=== PATIENT | male | born 1960 | race African-American/Black ===

== ENCOUNTER 2022-06-29 10:41 | Inpatient (IN) | payer MEDICAID, OTHER ==
[~2022-06-29] VITALS: Ht 193 cm; Wt 142.9 kg
[~2022-06-29 10:41] MED LIST: ASPI-1406 PO; CARV6.2548 PO; FURO-151 MT; LISI-186 PO; SPIR25TA PO
[2022-06-29] MEDS ORDERED: NITROGLYCERIN 0.4MG TABLET SL SL PRN (12:30)
[2022-06-29 12:45] LABS: BASOPHILS % 0.7 % (0.0-2.0); EOSINOPHILS % 1.3 % (0.0-5.0); HEMATOCRIT. 46.2 % (42.0-52.0); HEMOGLOBIN. 15.6 g/dL (14.0-18.0); LYMPHOCYTES % 25.8 % (20.0-50.0); MEAN CORPUSCULAR HEMOGLOBIN 30.5 pg (28.0-32.0); MEAN CORPUSCULAR VOLUME 90.7 fL (80.0-94.0); MEAN PLATELET VOLUME 9.3 fl (7.4-10.4); MONOCYTES % 9.2 % (2.0-8.0); PLATELET 249 x1000/uL (130-400); RED CELL DISTRIBUTION WIDTH 15.8 % (11.6-14.6)
[2022-06-29 13:05] LABS: CHLORIDE 109 mEq/L (98-107)
[2022-06-29] MEDS ORDERED: FUROSEMIDE 40MG/4ML VIAL IVP ONE (13:15)
[2022-06-29] MEDS ORDERED: FUROSEMIDE 40MG/4ML VIAL IVP NR (15:18)
[2022-06-29 22:00] VITALS: BP 137/97
[2022-06-29] MEDS ORDERED: ZOLPIDEM TARTRATE 5MG TABLET PO PRN (23:45)
[2022-06-29] MEDS ORDERED: HYDROCODONE/ACETAMINOPHEN 5/325MG TABLET PO PRN (23:45)
[2022-06-29] MEDS ORDERED: DEXTROSE 50% WATER 50ML SYRINGE IV PRN (23:45)
[2022-06-29] MEDS ORDERED: CLONIDINE 0.1MG TABLET PO PRN (23:45)
[2022-06-30] VITALS: BP 105/60
[2022-06-30 04:00] VITALS: BP 143/93
[2022-06-30 05:52] LABS: *AMPHETAMINES SCREEN URINE NEGATIVE (NEGATIVE); *BARBITURATES SCREEN URINE NEGATIVE (NEGATIVE); *BENZODIAZEPINES SCREEN URINE NEGATIVE (NEGATIVE); *COCAINE SCREEN URINE NEGATIVE (NEGATIVE); CANNABINOID URINE SCREEN NEGATIVE (NEGATIVE); METHADONE URINE SCREEN NEGATIVE (NEGATIVE); OPIATES URINE SCREEN NEGATIVE (NEGATIVE); PHENCYCLIDINE URINE SCREEN NEGATIVE (NEGATIVE)
[2022-06-30 06:22] LABS: BASOPHILS % 0.8 % (0.0-2.0); EOSINOPHILS % 1.4 % (0.0-5.0); HEMOGLOBIN. 15.3 g/dL (14.0-18.0); LYMPHOCYTES % 26.1 % (20.0-50.0); MEAN CORPUSCULAR HEMOGLOBIN 30.7 pg (28.0-32.0); MEAN CORPUSCULAR VOLUME 90.1 fL (80.0-94.0); MEAN PLATELET VOLUME 9.8 fl (7.4-10.4); MONOCYTES % 9.1 % (2.0-8.0); NEUTROPHILS % 62.6 % (40.0-76.0); PLATELET 245 x1000/uL (130-400); RED BLOOD CELL COUNT 4.99 mill/uL (4.7-6.1); RED CELL DISTRIBUTION WIDTH 15.7 % (11.6-14.6)
[2022-06-30] MEDS: BLOOD SUGAR DIAGNOSTIC STRIP TEST SCH ×4 (06:55→21:33)
[2022-06-30] MEDS: INSULIN LISPRO 100 UNITS/ML SUBCUT SCH ×4 (07:20→21:32)
[2022-06-30 07:52] LABS: CHLORIDE 106 mEq/L (98-107)
[2022-06-30 08:00] VITALS: BP 113/60
[2022-06-30] MEDS: FUROSEMIDE 40MG TABLET PO SCH (09:10)
[2022-06-30] MEDS: ENOXAPARIN 40MG/0.4ML SYR SUBCUT SCH ×2 (09:10→21:33)
[2022-06-30] MEDS ORDERED: NALOXONE HCL 0.4MG/ML VIAL IV PRN (10:00)
[2022-06-30] MEDS: LIDOCAINE 5% PATCH TOP SCH (11:00)
[2022-06-30 12:00] VITALS: BP 113/72
[2022-06-30] MEDS: ASPIRIN 81MG EC TABLET PO SCH (13:26)
[2022-06-30 16:00] VITALS: BP 116/72
[2022-06-30] MEDS: CARVEDILOL 6.25 MG TABLET PO SCH (17:26)
[2022-06-30 20:00] VITALS: BP 123/81
[2022-07-01] VITALS: BP 115/74
[2022-07-01 04:00] VITALS: BP 120/74
[2022-07-01 05:30] LABS: BASOPHILS % 0.4 % (0.0-2.0); HEMATOCRIT. 43.4 % (42.0-52.0); HEMOGLOBIN. 14.9 g/dL (14.0-18.0); LYMPHOCYTES % 35.1 % (20.0-50.0); MEAN CORPUSCULAR HEMOGLOBIN 30.6 pg (28.0-32.0); MEAN CORPUSCULAR VOLUME 89.3 fL (80.0-94.0); MEAN PLATELET VOLUME 9.6 fl (7.4-10.4); MONOCYTES % 10.1 % (2.0-8.0); NEUTROPHILS % 52.4 % (40.0-76.0); PLATELET 267 x1000/uL (130-400); RED BLOOD CELL COUNT 4.86 mill/uL (4.7-6.1); RED CELL DISTRIBUTION WIDTH 15.4 % (11.6-14.6)
[2022-07-01] MEDS: BLOOD SUGAR DIAGNOSTIC STRIP TEST SCH ×4 (06:41→21:22)
[2022-07-01] MEDS: INSULIN LISPRO 100 UNITS/ML SUBCUT SCH ×4 (07:20→21:00)
[2022-07-01 08:00] VITALS: BP 125/53
[2022-07-01] MEDS: SPIRONOLACTONE 25MG TABLET PO SCH (08:18)
[2022-07-01] MEDS: FUROSEMIDE 40MG TABLET PO SCH (08:18)
[2022-07-01] MEDS: ENOXAPARIN 40MG/0.4ML SYR SUBCUT SCH ×2 (08:18→21:26)
[2022-07-01] MEDS: CARVEDILOL 6.25 MG TABLET PO SCH ×2 (08:18→18:11)
[2022-07-01] MEDS: LIDOCAINE 5% PATCH TOP SCH (08:18)
[2022-07-01] MEDS: ASPIRIN 81MG EC TABLET PO SCH (08:22)
[2022-07-01 08:31] LABS: CHLORIDE 105 mEq/L (98-107)
[2022-07-01] MEDS ORDERED: LIDO700A30 TOP (10:29)
[2022-07-01 12:00] VITALS: BP 126/89
[2022-07-01] MEDS ORDERED: NITROGLYCERIN SPRAY/4.9GM CAN TL NR (13:00)
[2022-07-01] MEDS ORDERED: IOHEXOL-350 100 ML BOTTLE ONE (13:28)
[2022-07-01 16:00] VITALS: BP 152/66
[2022-07-01 20:00] VITALS: BP 128/88
[2022-07-01 23:16] LABS: CREATINE KINASE 54 IU/L (39-308); CREATINE KINASE MB FRACTION < 1.0 ng/mL (0.5-3.6)
[2022-07-02] VITALS: BP 145/67
[2022-07-02 04:00] VITALS: BP 109/69
[2022-07-02 06:15] LABS: CREATINE KINASE 57 IU/L (39-308); CREATINE KINASE MB FRACTION < 1.0 ng/mL (0.5-3.6)
[2022-07-02] MEDS: BLOOD SUGAR DIAGNOSTIC STRIP TEST SCH (06:37)
[2022-07-02] MEDS: INSULIN LISPRO 100 UNITS/ML SUBCUT SCH (07:20)
[2022-07-02 08:00] VITALS: BP 114/70
[2022-07-02] MEDS: ENOXAPARIN 40MG/0.4ML SYR SUBCUT SCH (09:02)
[2022-07-02] MEDS: SPIRONOLACTONE 25MG TABLET PO SCH (09:02)
[2022-07-02] MEDS: CARVEDILOL 6.25 MG TABLET PO SCH (09:02)
[2022-07-02] MEDS: ASPIRIN 81MG EC TABLET PO SCH (09:02)
[2022-07-02] MEDS: FUROSEMIDE 40MG TABLET PO SCH (09:02)
[2022-07-02] MEDS: LIDOCAINE 5% PATCH TOP SCH (09:03)
[2022-07-02 11:32] VITALS: BP 109/69
[2022-07-02 12:00] VITALS: BP 136/91
== END 2022-07-02 12:30 | disposition home or self-care (01) | DRG 203 ==
LOC: ER 10:41 → 3WST 16:38 → ER 21:40 → 3WST 21:45
PROVIDERS: ADMIT Internal Medicine; ATTEND Internal Medicine
DX: M94.0 Chondrocostal junction syndrome [Tietze] (principal); I50.23 Acute on chronic systolic (congestive) heart failure; I11.0 Hypertensive heart disease with heart failure; I42.0 Dilated cardiomyopathy; E11.9 Type 2 diabetes mellitus without complications; E78.00 Pure hypercholesterolemia, unspecified; E87.6 Hypokalemia; R79.89 Other specified abnormal findings of blood chemistry; F10.10 Alcohol abuse, uncomplicated; Z79.84 Long term (current) use of oral hypoglycemic drugs; Z88.8 Allergy status to other drugs, medicaments and biological substances; Z79.899 Other long term (current) drug therapy; I34.0 Nonrheumatic mitral (valve) insufficiency
CPT/HCPCS: 36415; 71045; 75571; 80048; 80053; 80305; 82550; 82553; 82962; 83880; 84484; 85025; 85379; 93005; 93306; 99285; C1893; J1650; J1815; J1940; Q9967

== ENCOUNTER 2024-04-08 11:43 | Emergency (ER) | payer MEDICARE, MEDICAID ==
[~2024-04-08] VITALS: Ht 165.1 cm; Wt 61.0 kg
[~2024-04-08 11:43] MED LIST changes: +LEVO750T68 MT; +LIDO700A30 TOP; -LISI-186 PO
[2024-04-08 11:53] VITALS: O2SAT 99
[2024-04-08 12:49] LABS: BASOPHILS % 0.5 % (0.0-2.0); EOSINOPHILS % 2.3 % (0.0-5.0); HEMOGLOBIN. 14.8 g/dL (14.0-18.0); LYMPHOCYTES % 19.8 % (20.0-50.0); MEAN CORPUSCULAR HEMOGLOBIN 31.3 pg (28.0-32.0); MEAN PLATELET VOLUME 7.9 fl (7.4-10.4); MONOCYTES % 10.7 % (2.0-8.0); NEUTROPHILS % 66.7 % (40.0-76.0); PLATELET 455 x1000/uL (130-400); RED BLOOD CELL COUNT 4.73 mill/uL (4.7-6.1); RED CELL DISTRIBUTION WIDTH 14.1 % (11.6-14.6); WHITE BLOOD COUNT 13.1 x1000/uL (4.5-11.0)
[2024-04-08 12:54] LABS: CARBON DIOXIDE 29 mEq/L (21-32); CHLORIDE 105 mEq/L (98-107); POTASSIUM 4.1 mEq/L (3.5-5.1); SODIUM 139 mEq/L (136-145)
[2024-04-08 12:55] LABS: CALCIUM 9.9 mg/dL (8.7-10.4)
[2024-04-08 13:00] LABS: CREATININE 1.2 mg/dL (0.6-1.3); GLUCOSE 119 mg/dL (70-105); TROPONIN I HIGH SENSITIVITY 8 ng/L (3.0-53); UREA NITROGEN BLOOD 11 mg/dL (9-23)
[2024-04-08] MEDS ORDERED: AMOX1TAB16 MT (14:07)
[2024-04-08] MEDS ORDERED: AZIT250T12 MT (14:07)
[2024-04-08 14:14] VITALS: BP 145/84; PULSE 84; RESP 16; TEMP 36.78072; O2SAT 99
== END 2024-04-08 14:15 | disposition home or self-care (01) ==
LOC: ER 11:43
DX: J18.9 Pneumonia, unspecified organism (principal); R06.02 Shortness of breath; Z88.8 Allergy status to other drugs, medicaments and biological substances; Z79.899 Other long term (current) drug therapy
CPT/HCPCS: 36415; 71045; 80048; 83880; 84484; 85025; 93005; 99285